=== PATIENT | female | born 1965 | race Caucasian/White ===

== ENCOUNTER 2019-08-30 01:53 | Emergency (ER) | payer OTHER ==
[2019-08-30 02:15] LABS: BILIRUBIN,URINE NEGATIVE (NEGATIVE); GLUCOSE, URINE (UA) NEGATIVE (NEGATIVE); KETONES,URINE (UA) NEGATIVE (NEGATIVE); LEUKOCYTE ESTERASE, URINE NEGATIVE (NEGATIVE); NITRITE,URINE NEGATIVE (NEGATIVE); OCCULT BLOOD,URINE NEGATIVE (NEGATIVE); PH,URINE 6.5 PH (5.0-7.5); PROTEIN,URINE NEGATIVE (NEGATIVE); UROBILINOGEN,URINE 0.2 (NORMAL) E.U./dL (NORMAL)
[2019-08-30 02:16] LABS: CLARITY,URINE CLEAR (CLEAR)
--- NOTE | 2019-08-30 02:18 | ED Physician Documentation ---
History of Present Illness - Stated complaint Stated Complaint: ABD PX/R BK PX - Chief complaint Chief Complaint: Abd Pain - Additonal information Additional information: This is a 54-year-old female with history of hypertension who presents with epigastric pain. Patient states that she woke up several hours ago and had some mild central epigastric discomfort, she thought she had some bloating so she took a Gas-X and try to lay down but the pain continued. She states that it is located in her mid epigastrium and radiates out to both sides. She is never had any nausea being. She denies any abdominal surgeries. She has no cardiac history, she is not diabetic, has never had a heart attack, did not have any diaphoresis associated with this pain, does not have any family history of early cardiac disease. She currently continues to have moderate discomfort which is across her upper abdomen. She denies any shortness of breath. No leg swelling. Review of Systems Constitutional: denies: Fever Nose: denies: Rhinorrhea / runny nose Cardiac: denies: Chest pain / pressure Respiratory: denies: Dyspnea GI: reports: Abdominal Pain. denies: Nausea, Vomiting Musculoskeletal: denies: Neck pain Neurologic: denies: Generalized weakness Immunocompromised: denies: Immunocompromised PD PAST MEDICAL HISTORY - Past Medical History Cardiovascular: Hypertension - Present Medications Home Medications: Ambulatory Orders Medication Instructions Recorded Confirmed Ondansetron Odt [Zofran] 4 mg TL Q6H PRN #7 tablet 08/30/19 - Allergies Allergies/Adverse Reactions: Allergies Allergy/AdvReac Type Severity Reaction Status Date / Time No Known Drug Allergies Allergy Verified 08/30/19 02:09 - Living Situation Living Situation: reports: With spouse/s.o. Living Arrangement: reports: At home PD ED PE NORMAL - Vitals Vital signs reviewed: Yes - General General: Alert and oriented X 3, No acute distress - HEENT HEENT: PERRL - Neck Neck: Supple, no meningeal sign - Cardiac Cardiac: RRR, No murmur - Respiratory Respiratory: Clear bilaterally - Abdomen Abdomen: Soft, Non tender, Non distended - Derm Derm: Warm and dry - Extremities Extremities: No deformity - Neuro Neuro: Alert and oriented X 3 - Psych Psych: Normal mood, Normal affect Results - Vitals Vitals: Vital Signs - 24 hr 08/30/19 08/30/19 08/30/19 05:52 06:24 07:02 Heart Rate 69 78 62 Respiratory 18 15 17 Rate Blood Pressure 155/88 H 149/82 H 148/76 H O2 Saturation 99 92 96 Oxygen O2 Source Room air - EKG (time done) 2:08 Other comments: Other comments (Rate 75, rhythm sinus, there is no T-segment elevation or depression, no abnormal T wave inversions. There is a borderline nonspecific intraventricular conduction delay. QTC 433) 5:59 Other comments: Other comments (Rate 59, rhythm sinus, there is no ST segment elevation or depression, no abnormal T wave inversions, there is a questionable borderline interventricular conduction delay, otherwise intervals within normal limits.) - Labs Labs: Laboratory Tests 08/30/19 08/30/19 08/30/19 02:04 02:20 02:20 WBC 6.7 RBC 4.75 Hgb 12.8 Hct 38.7 MCV 81.5 MCH 26.9 L MCHC 33.1 RDW 12.8 Plt Count 202 MPV 10.2 Neut # (Auto) 3.4 Lymph # (Auto) 2.6 [place] # (Auto) 0.5 Eos # (Auto) 0.2 Baso # (Auto) 0.0 Absolute Nucleated RBC 0.00 Nucleated RBC % 0.0 Sodium 139 Potassium 3.8 Chloride 106 Carbon Dioxide 24 Anion Gap 9.0 BUN 14 Creatinine 0.6 Estimated GFR (MDRD) 104 Glucose 121 H Calcium 9.3 Total Bilirubin 0.3 AST 22 ALT 33 Alkaline Phosphatase 76 Troponin I High Sens Total Protein 7.1 Albumin 4.1 Globulin 3.0 Albumin/Globulin Ratio 1.4 Lipase 35 Urine Color YELLOW Urine Clarity CLEAR Urine pH 6.5 Ur Specific [place] 1.015 Urine Protein NEGATIVE Urine Glucose (UA) NEGATIVE Urine Ketones NEGATIVE Urine Occult Blood NEGATIVE Urine Nitrite NEGATIVE Urine Bilirubin NEGATIVE Urine Urobilinogen 0.2 (NORMAL) Ur Leukocyte Esterase NEGATIVE Ur Microscopic Review NOT INDICATED Urine Culture Comments NOT INDICATED 08/30/19 02:20 WBC RBC Hgb Hct MCV MCH MCHC RDW Plt Count MPV Neut # (Auto) Lymph # (Auto) [place] # (Auto) Eos # (Auto) Baso # (Auto) Absolute Nucleated RBC Nucleated RBC % Sodium Potassium Chloride Carbon Dioxide Anion Gap BUN Creatinine Estimated GFR (MDRD) Glucose Calcium Total Bilirubin AST ALT Alkaline Phosphatase Troponin I High Sens < 2.3 L Total Protein Albumin Globulin Albumin/Globulin Ratio Lipase Urine Color Urine Clarity Urine pH Ur Specific [place] Urine Protein Urine Glucose (UA) Urine Ketones Urine Occult Blood Urine Nitrite Urine Bilirubin Urine Urobilinogen Ur Leukocyte Esterase Ur Microscopic Review Urine Culture Comments - Rads (name of study) Chest XR Radiology: Other (No acute cardiopulmonary abnormality, clear lungs.) PD MEDICAL DECISION MAKING - ED course Complexity details: considered differential (Gastritis, pancreatitis, cholecystitis/biliary colic, enteritis, ACS, dysrhythmia, pneumonia) ED course: On initial examination patient is nontoxic-appearing, vital signs notable for mild hypertension, otherwise unremarkable. IV was inserted labs are drawn and patient was given a GI cocktail, this did not improve her symptoms so she was given dose of morphine followed by hydromorphone. Her labs are reassuring with no leukocytosis, normal hemoglobin, unremarkable abdominal panel, and negative high-sensitivity troponin. Her EKG also shows no convincing signs of ischemia or dysrhythmia and her discomfort is truly localized in her abdomen, which would be very atypical for ACS, particularly given that she does not have a cardiac history. No shortness of breath or chest pain to suggest PE. On repeat evaluation patient continues to have a benign abdominal exam but she is complaining of continued pain despite several doses of pain medication, so a CT of her abdomen and pelvis was obtained which shows no acute abdominal abnormality. It does show some possible bibasilar groundglass opacities, however her chest x-ray is clear and she has no cough or shortness of breath to suggest pneumonia. On repeat examination patient is feeling better her abdomen is benign and her vital signs are also unremarkable. She has no tenderness in the right upper quadrant, making biliary pathology extremely unlikely.I did repeat an EKG and this showed no changes from the first. I discussed with the patient that I do not have a clear explanation for her symptoms, but given her reassuring results I think she is appropriate for close outpatient follow-up. I discussed the diagnostic uncertainty of today's work- up, and that if she has any new or worsening symptoms, particularly chest pain, shortness of breath, persistent vomiting, or changing abdominal pain she needs to return to emergency department for a repeat evaluation. Patient agrees with this plan, and given that she is feeling improved she feels comfortable going home at this time. She was discharged home in the care of her . Departure - Departure Disposition: 01 Home, Self Care Clinical Impression: Epigastric pain Condition: Good Instructions: ED Abdominal Pain Unkn Cause Follow-Up: Your,PCP [Other] - Within 1 week Prescriptions: Ondansetron Odt [Zofran] 4 mg TL Q6H PRN #7 tablet PRN Reason: Nausea / Vomiting Comments: You were seen today for upper abdominal pain. Your labs did not show an obvious cause of your pain, we do not see signs of strain on your heart, and your CT scan did not show an obvious emergent cause of your pain either. If you are developing worsening such as persistent vomiting, increasing pain, or pain that changes or settles to one specific location, please return to the emergency department. You may take [id number] pain relievers such as ibuprofen and Tylenol for your symptoms, and I am also prescribing Zofran for nausea if needed. Discharge Date/Time: 08/30/19 07:03
[2019-08-30 02:36] LABS: BASOPHILS % (AUTO) 0.4 %; EOSINOPHILS # (AUTO) 0.2 10^3/uL (0.0-0.7); EOSINOPHILS % (AUTO) 2.2 %; HGB - HEMOGLOBIN 12.8 g/dL (12.0-16.0); LYMPHOCYTES # (AUTO) 2.6 10^3/uL (1.5-3.5); LYMPHOCYTES % (AUTO) 38.4 %; MEAN CORPUSCULAR HEMOGLOBIN 26.9 pg (27.0-31.0); MEAN CORPUSCULAR HGB CONC 33.1 g/dL (32.0-36.0); MEAN CORPUSCULAR VOLUME 81.5 fL (81.0-99.0); MEAN PLATELET VOLUME 10.2 fL (7.9-10.8); MONOCYTES # (AUTO) 0.5 10^3/uL (0.0-1.0); NEUTROPHILS # (AUTO) 3.4 10^3/uL (1.5-6.6); NEUTROPHILS % (AUTO) 50.5 %; PLT - PLATELET COUNT 202 10^3/uL (130-450); RED BLOOD COUNT 4.75 10^6/uL (4.20-5.40); RED CELL DISTRIBUTION WIDTH 12.8 % (12.0-15.0); WHITE BLOOD COUNT 6.7 x10^3/uL (4.8-10.8)
[2019-08-30 02:51] LABS: ALBUMIN 4.1 g/dL (3.2-5.5); ALBUMIN/GLOBULIN RATIO 1.4 (1.0-2.2); BILIRUBIN,TOTAL 0.3 mg/dL (0.2-1.0); CALCIUM 9.3 mg/dL (8.5-10.3); CREATININE 0.6 mg/dL (0.4-1.0); TOTAL PROTEIN 7.1 g/dL (6.7-8.2)
[2019-08-30] MEDS ORDERED: MAG HYDROX/AL HYDROX/SIMETH 30 ML UDC PO STA (03:11)
--- NOTE | 2019-08-30 04:28 | XRAY Report ---
Reason: Epigastric/chest pain Procedure Date: 08/30/2019 Accession Number: [id number] / [id number] Procedure: XR - Chest 2 View X-Ray CPT Code: 89655 Final Report FULL RESULT: EXAM: CHEST RADIOGRAPHY EXAM DATE: 08/30/2019 03:45 AM. CLINICAL HISTORY: Epigastric/chest pain. COMPARISON: None. TECHNIQUE: 2 views. FINDINGS: Lungs/Pleura: No focal opacities evident. No pleural effusion. No pneumothorax. Normal volumes. Mediastinum: Normal mediastinal and cardiac silhouettes. Other: Lower thoracic levoscoliosis and compensatory thoracolumbar dextroscoliosis. IMPRESSION: Clear lungs. RADIA
[2019-08-30] MEDS ORDERED: MORPHINE 2 MG/ML CARPUJECT IVP STA (04:58)
[2019-08-30] MEDS ORDERED: IOVERSOL 320 100 ML VIAL IVP ONE ×2 (05:35→06:25)
[2019-08-30] MEDS ORDERED: HYDROmorphone 2 MG/ML VIAL IVP STA (05:36)
[2019-08-30] MEDS ORDERED: HYDROmorphone 1 MG/ML CARPUJECT ONE (05:38)
[2019-08-30] MEDS ORDERED: ONDANSETRON 4 MG/2 ML VIAL IVP STA (05:44)
[2019-08-30] MEDS ORDERED: HYDROmorphone 1 MG/ML CARPUJECT IVP STA (05:44)
--- NOTE | 2019-08-30 06:36 | CT Report ---
Reason: Upper abdominal pain radiating to back Procedure Date: 08/30/2019 Accession Number: [id number] / [id number] Procedure: CT - Abdomen/Pelvis W CPT Code: Final Report FULL RESULT: EXAM: CT ABDOMEN AND PELVIS EXAM DATE: 08/30/2019 06:22 AM. CLINICAL HISTORY: Upper abdominal pain with radiation to back COMPARISONS: None. TECHNIQUE: Routine helical CT imaging was performed through the abdomen and pelvis. IV contrast: 100 mL Optiray 320. Enteric contrast: No. Reconstructions: Coronal and sagittal. In accordance with CT protocol optimization, one or more of the following dose reduction techniques were utilized for this exam: automated exposure control, adjustment of mA and/or KV based on patient size, or use of iterative reconstructive technique. FINDINGS: Lung Bases: Ground glass opacities and atelectasis are seen in both lower lobes. The heart is normal in size. There is no pericardial effusion. Liver: Normal. No masses. Gallbladder/Bile Ducts: Normal gallbladder. No biliary dilatation. Spleen: Normal. Pancreas: Normal. Adrenal Glands: Normal. Kidneys: Multiple small hypoattenuating renal lesions, likely representing small cysts. There is no renal mass. No hydronephrosis. Peritoneal Cavity/Bowel: The intestines are normal in caliber and position. The appendix is normal. Colonic diverticulosis is seen without evidence of diverticulitis. There is no evidence of bowel obstruction, pneumatosis, or free intraperitoneal air. There is no lymphadenopathy. No ascites is present. Pelvic Organs: The bladder is normal. The uterus and adnexal structures are normal. Vasculature: The abdominal aorta is normal in course and caliber with minimal atherosclerotic plaque calcifications in the aorta and iliac arteries. Bones: There is a thoracolumbar dextroscoliosis with compensatory lumbar levoscoliosis. Bilateral L5 pars defects are seen with grade 2 anterolisthesis at L5-S1. Other: None. IMPRESSION: Bibasilar groundglass opacities with atelectasis may reflect an underlying infectious/inflammatory etiology. The appendix is normal. Diverticulosis without evidence of diverticulitis. RADIA
[2019-08-30 07:02] VITALS: BP 148/76
== END 2019-08-30 07:03 | disposition home or self-care (01) ==
LOC: ED 01:53
DX: R10.13 Epigastric pain (principal); R91.8 Other nonspecific abnormal finding of lung field; I10 Essential (primary) hypertension
CPT/HCPCS: 36415; 71046; 74177; 80053; 81003; 83690; 84484; 85025; 93005; 96374; 96375; 99284; A9270; J1170; Q9967; 81001; 87086

== ENCOUNTER 2020-02-13 10:40 | Outpatient (CLI) | payer OTHER | END 2020-02-13 10:41 | disposition home or self-care (01) | LOC: LAB 10:40 | PROVIDERS: ATTEND Surgery | DX: Z01.812 Encounter for preprocedural laboratory examination (principal); K81.1 Chronic cholecystitis; Z20.828 Contact with and (suspected) exposure to other viral communicable diseases | CPT/HCPCS: 81599 ==

== ENCOUNTER 2020-02-17 09:24 | Day surgery (SDC) | payer OTHER ==
[2020-02-17] MEDS ORDERED: LACTATED RINGERS 1,000 ML IV ONE (09:32)
[2020-02-17] MEDS ORDERED: CEFAZOLIN SODIUM IN 0.9 % NACL 2 GM/100 ML BAG IV ONE (09:38)
--- NOTE | 2020-02-17 10:08 | ANESTHESIA ---
Pre-Anesthesia VS, & Labs - Diagnosis chronic cholecystitis - Procedure Lap azucena Vital Signs: Temp Pulse Resp BP Pulse Ox 37.0 C 77 18 146/89 H 100 02/17/20 09:36 02/17/20 09:36 02/17/20 09:36 02/17/20 09:36 02/17/20 09:36 Height 5 ft 6 in Weight (kg) 90.7 kg Body Mass Index 34.7 - NPO >8 hours - Is Patient ?: No Home Medications and Allergies Home Medications: Ambulatory Orders Levothyroxine Sodium [Synthroid] 100 mcg PO DAILY 02/11/20 Lisinopril [Prinivil] 5 mg PO DAILY 02/11/20 Omeprazole 20 mg PO DAILY 02/11/20 Levothyroxine Sodium [Synthroid] 100 mcg PO DAILY 02/11/20 Lisinopril [Prinivil] 5 mg PO DAILY 02/11/20 Omeprazole 20 mg PO DAILY 02/11/20 Allergies/Adverse Reactions: Allergies Allergy/AdvReac Type Severity Reaction Status Date / Time No Known Drug Allergies Allergy Verified 08/30/19 02:09 Anes History & Medical History - Anesthetic History Anesthesia Complications: reports: No previous complications Family history of Anesthesia Complications: Denies Family history of Malignant Hyperthermia: Denies - Medical History Cardiovascular: reports: None, Hypertension Pulmonary: reports: None Gastrointestinal: reports: Cholelithiasis Urinary: reports: None Neuro: reports: None Musculoskeletal: reports: None Endocrine/Autoimmune: reports: HyPOthyroidism Blood Disorders: reports: None Skin: reports: None Smoking Status: Never smoker Psychosocial: reports: No issues indicated - Surgical History General: Other Gynecologic: section Exam General: Alert, Oriented x3, Cooperative, No acute distress Dental: WNL Mouth Openin Fingerbreadth Neck Mobility: Normal Mallampati classification: III Thyromental Distance: less than 4 cm Respiratory: Lungs clear, Normal breath sounds, No respiratory distress, No accessory muscle use Cardiovascular: Regular rate, Normal S1, Normal S2, No murmurs Abdomen: Normal bowel sounds, Soft, No tenderness, No hepatospenomegaly, No masses Extremities: No clubbing, No cyanosis, No edema, Normal pulses, No tenderness/swelling Neurological: Normal gait, Normal speech, Strength at 5/5 X4 ext, Normal tone, Sensation intact, Cranial nerves 3-12 NL, Reflexes 2+ Mental/Cognitive Status: Alert/Oriented X3, Normal for patient Cognitive Status: Within normal limits Plan Anesthesia Type: General Consent for Procedure(s) Verified and Reviewed: Yes Code Status: Attempt Resuscitation ASA classification: 2-Mild systemic disease Is this case an emergency?: No
[2020-02-17] MEDS ORDERED: BUPIVACAINE 0.25% PF 30 ML VIAL ONE ×2 (11:50→14:33)
[2020-02-17] MEDS ORDERED: ROCURONIUM 50 MG/5 ML VIAL IVP ONE (12:30)
[2020-02-17] MEDS ORDERED: ACETAMINOPHEN 1,000 MG/100 ML 100 ML IV ONE (12:30)
[2020-02-17] MEDS ORDERED: fentaNYL 100 MCG/2 ML VIAL IVP ONE (12:30)
[2020-02-17] MEDS ORDERED: ONDANSETRON 4 MG/2 ML VIAL IVP ONE (12:30)
[2020-02-17] MEDS ORDERED: MIDAZOLAM 2 MG/2 ML VIAL IVP ONE (12:30)
[2020-02-17] MEDS ORDERED: DEXAMETHASONE 4 MG/ML VIAL IVP ONE (12:30)
[2020-02-17] MEDS ORDERED: NEOSTIGMINE 1 MG/1 ML 10 ML MDV IVP ONE (12:30)
[2020-02-17] MEDS ORDERED: KETOROLAC 30 MG/ML VIAL IVP ONE (12:30)
[2020-02-17] MEDS ORDERED: GLYCOPYRROLATE 1 MG/5 ML VIAL IVP ONE (12:30)
[2020-02-17] MEDS ORDERED: PROPOFOL 200 MG/20 ML VIAL IVP ONE (12:30)
[2020-02-17] MEDS ORDERED: LIDOCAINE 1%-EPI 1:100000 20 ML MDV ONE (12:54)
[2020-02-17] MEDS ORDERED: BUPIVACAINE 0.25% PF 30 ML VIAL SUBQ ONE (13:29)
[2020-02-17] MEDS ORDERED: ONDANSETRON 4 MG/2 ML VIAL IVP PRN (14:51)
[2020-02-17] MEDS ORDERED: oxyCODONE 5 MG TABLET PO PRN (15:37)
[2020-02-17] MEDS ORDERED: oxyCODONE 5 MG TABLET ONE (15:38)
[2020-02-17 16:02] VITALS: BP 123/74
--- NOTE | 2020-02-18 06:57 | OPERATIVE REPORT ---
DATE OF SERVICE: 02/17/2020 Physician: Lj Hernandez MD PREOPERATIVE DIAGNOSIS: Chronic cholecystitis. POSTOPERATIVE DIAGNOSIS: Chronic cholecystitis. PROCEDURE PERFORMED: Laparoscopic cholecystectomy. SURGEON: Royal Hernandez MD MANAGER LAN: None. TYPE OF ANESTHESIA: General endotracheal anesthesia, local anesthesia with Marcaine. COMPLICATIONS: None. SPECIMEN: Gallbladder. ESTIMATED BLOOD LOSS: 25 mL. DRAINS: None. FINDINGS: A distended, thickened gallbladder completely packed full of gallstones. Cystic duct was very narrow, approximately 2-3 mm lumen. INDICATIONS FOR PROCEDURE: The patient is an otherwise healthy lady who has had quite significant right upper quadrant discomfort on occasion recently. She has not had signs or symptoms of choledocholithiasis. She presents for laparoscopic cholecystectomy. Risks discussed, alternatives discussed, all questions answered and consent obtained. DETAILS OF PROCEDURE: The patient was properly identified, brought to the operating room and placed in supine position. She voided prior to surgery. General endotracheal anesthesia was induced. Sequential compression devices were placed. She was prepped and draped in a sterile fashion and given preoperative antibiotics. She has a mild diastasis and mild weakness at the umbilicus. She did not have an umbilical hernia. Incision was made approximately 3 cm cephalad and 4 cm right lateral of her umbilicus. Dissection proceeded down to the fascia. The fascia was incised, lifted upwards and the abdomen entered with a Veress needle. CO2 was insufflated to a pressure of 15. An 11 mm trocar was placed, followed by a 30-degree scope. There was no evidence of injury from Veress needle or trocar placement. Under direct vision, two 5 mm trocars were placed in the right upper quadrant and a 10 mm trocar was placed in the epigastrium. Her gallbladder was quite thickened and distended. It was completely packed tight with gallstones and fairly difficult to manipulate. The gallbladder was retracted anterior. Lateral attachments were partially taken down. She had significant inflammation along the lower third of the gallbladder. Peritoneal and adipose type tissue was carefully peeled down. She had a few very small, less than 1 mm vessels, which were clipped and divided, further exposing the infundibulum of the gallbladder. She had a long anterior cystic artery, which was clipped at the gallbladder x2, slightly proximal and sharply divided. Given the distorted anatomy with a distended tight gallbladder with numerous gallstones, a very large bare cystic plate area or window was carefully developed. The cystic duct was clearly identified from a right lateral and left lateral position. The cystic duct was then clipped at the gallbladder and x2 slightly proximal and sharply divided. She had significant inflammation along the cystic duct. The central lumen of the cystic duct was no more than 3 mm. The gallbladder was further removed from the bed of the liver with hook cautery. There was no spillage of bile or stone material. The abdomen was thoroughly irrigated. Fascia at the periumbilical site was closed with a [id number] 0 Vicryl using a fascial stitch passer. The gallbladder was brought out through the epigastric trocar site. The fascia had to be enlarged to approximately 4 cm to allow extraction. Scope was then replaced, assuring hemostasis. Fascia in the epigastrium was closed with a running 0 Vicryl suture, after trocars were removed and CO2 evacuated. The skin was closed with buried interrupted 4-0 Monocryl. Dressings were applied. She tolerated the procedure well. TD: 02/17/2020 20:18 CAILIN
== END 2020-02-17 09:25 | disposition home or self-care (01) ==
LOC: SDS 09:24
PROVIDERS: ATTEND Surgery
PROC: 0FT44ZZ Resection of Gallbladder, Percutaneous Endoscopic Approach (ICD-10-PCS; principal; 2020-02-17 10:45)
DX: K80.10 Calculus of gallbladder with chronic cholecystitis without obstruction (principal); I10 Essential (primary) hypertension
CPT/HCPCS: 47562; A9270; J0131; J0690; J7120